=== PATIENT | male | born 1990 | race African-American/Black ===

== ENCOUNTER 2019-08-30 21:58 | Observation (INO) | payer SELFPAY ==
--- NOTE | ~2019-08-30 | CT_ITS ---
EXAMINATION: CT brain wo con INDICATION: Transient alteration of awareness COMPARISON: None TECHNIQUE: Standard unenhanced head CT. The dose-length product (DLP) was 605.33 mGy-cm. The mA was a djusted according to patient size. Iterative reconstruction technique was employed. FINDINGS: There is no intracranial hemorrhage, acute infarction, or abnormal mass lesion. The ventric les are normal. There is no abnormal mass effect or midline shift. The walton-white matter differentiat ion is normal. The basal cisterns are patent. The orbits are normal. The paranasal sinuses, mastoids and calvarium are normal. IMPRESSION: 1. No acute intracranial abnormality. Reviewed, dictated and finalized at location A.
--- NOTE | ~2019-08-30 | XR_ITS ---
EXAMINATION: XR chest 1V portable INDICATION: Transient alteration of awareness TECHNIQUE: Portable AP chest at 2224 hours COMPARISON: None available FINDINGS: There are patchy airspace opacities of the mid and lower lung zones. No pleural effusion or pneumothorax is identified. The cardiomediastinal silhouette is normal. The visualized osseous struc tures are unremarkable. IMPRESSION: 1. Patchy opacities of the mid and lower lung zones, consistent with atelectasis versus pneumonia. Reviewed, dictated and finalized at location A. IMPRESSION: 1. Patchy opacities of the mid and lower lung zones, consistent with atelectasi s versus pneumonia.
--- NOTE | ~2019-08-30 | US_ITS ---
EXAMINATION: US carotid duplex BI DATE: 08/31/2019 15:16 INDICATION: Syncope. TECHNIQUE: Grayscale, color Doppler, and pulsed Doppler images of the cervical carotid arteries were obtained. The degree of vessel stenosis is placed in one of the following categories: normal, <50%, 5 0-69%, >=70% but less than near-occlusion, near-occlusion, or total occlusion. Note that percent sten osis relative to normal distal artery lumen diameter is indirectly measured from velocity measurement s as described by Cameron, et al. Radiology 2003; 229:340-346. COMPARISON: None. FINDINGS: RIGHT: The right common carotid artery (CCA) peak systolic velocity (PSV) is 131 cm/s. The right internal ca rotid artery (ICA) PSV is 72 cm/s. The right ICA end-diastolic velocity (EDV) is 27 cm/s. The right I CA/CCA PSV ratio is 0.5. Grayscale and color Doppler images yield an estimate of 0% diameter reductio n from plaque in the ICA. There is antegrade flow in the right vertebral artery. LEFT: The left CCA PSV is 164 cm/s. The left ICA PSV is 91 cm/s. The left ICA EDV is 11 cm/s. The left ICA/ CCA PSV ratio is 0.6. Grayscale and color Doppler images yield an estimate of 0% diameter reduction f rom plaque in the ICA. There is antegrade flow in the left vertebral artery. IMPRESSION: 1. Normal internal carotid arteries. Reviewed, dictated and finalized at location E.
[2019-08-30 21:53] VITALS: BP 117/70; PULSE 55; RESP 17; TEMP 36.6; O2SAT 100
--- NOTE | 2019-08-30 22:08 | ECG_ITS ---
Measurements Intervals [place] Rate: 51 P: 3 TN: 194 QRS: 70 QRSD: 95 T: 45 QT: 390 QTc: 363 Interpretive Statements SINUS BRADYCARDIA BASELINE WANDER- I, II, AVR, AVL, AVF BORDERLINE ECG Electronically Signed On 08-31-2019 7:07:44 CDT by Randy Stanley D.O.
--- NOTE | 2019-08-30 22:08 | ED.AMS ---
HPI - Altered Mental Status General Chief Complaint: Altered Mental Status Stated Complaint: unresponsive Source: RN notes reviewed History of Present Illness HPI narrative: Patient presents emergency department from home for altered mental status. Patient states he was at work and was walking on the bathroom does not recall anything after this. Patient was found facedown on some pallets. He was unresponsive for approximately 10 to 15 minutes. When EMS initially arrived the patient was only responsive to painful stimuli progressively came more alert on his own and is now ANO x3. Patient does not recall what happened. Denies any complaints at this time. Denies any previous past medical history of drug use. Patient denies any pain at this time denies any recent illness Related Data Home Medications Medication Instructions Recorded Confirmed No Home Medications 08/31/19 08/31/19 Allergies Allergy/AdvReac Type Severity Reaction Status Date / Time No Known Allergies Allergy Verified 08/31/19 02:45 Review of Systems Review of Systems: Narrative: Gen.: Denies fevers or chills Eyes: Denies eye pain or visual change ENT: Denies congestion Respiratory: Denies shortness of breath or cough CV: Denies chest pain or palpitations GI: Denies abdominal pain nausea, emesis or diarrhea Musculoskeletal: Denies back pain or muscle pain Neuro: Denies numbness, tingling, weakness or focal weakness Skin: Denies rash Except as documented, all other systems reviewed and negative [facility] Past Medical History Medical History (Updated 08/31/19 @ 02:46 by Kleber Elmore DO) Patient denies significant medical history Exam Narrative: Exam Narrative: APPEARANCE: No acute distress, nontoxic, resting in bed HEENT: Normocephalic, atraumatic, OMM, TMs clear bilaterally EYES: PERRL, EOMI NECK: Supple, nontender, full range of motion without pain, no meningismus RESPIRATORY: No respiratory distress, clear to auscultation bilaterally with no rhonchi wheezing or rales CARDIOVASCULAR: RRR s murmur ABDOMINAL: Soft, nontender, nondistended MUSCULOSKELETAL: Moves all extremities. No clubbing, cyanosis or edema. NEURO: A and O ?3, following commands, speech normal, cranial nerves II through XII grossly intact,muscle strength 5 out of 5 bilateral upper and lower extremities SKIN:: Warm, dry. Normal Color PSYCHIATRIC: Normal affect/mood Course Course Emergency Course: Following chest x-ray did discuss with the patient he has had no cough or shortness of breath Patient with ABG drawn and printed out ABG does show patient having carbon monoxide level of 10 however this did not result in the chart as it was not ordered as an ABG complex. This matches with patient's finger CO level at bedside machine of 10 patient is a smoker and is felt secondary to smoking Patient remained awake and alert. I did discuss with him his amphetamine seen on drug screen denies any drug use Discussed with Dr. Zhong presentation work-up agrees with admission at this time Discussed with patient and family results of workup and diagnosis. Discussed need for admission. Patient and family understand and agree to current treatment plan Vital Signs Vital signs: Vital Signs Temperature 97.8 F 08/30/19 21:53 Pulse Rate 55 L 08/30/19 21:53 Respiratory Rate 17 08/30/19 21:53 Blood Pressure 117/70 08/30/19 21:53 Pulse Oximetry 100 08/30/19 21:53 Temperature 97.8 F 08/30/19 21:53 Pulse Rate 50 L 08/31/19 02:01 Respiratory Rate 20 08/31/19 02:01 Blood Pressure 114/63 08/31/19 02:01 Pulse Oximetry 100 08/31/19 01:13 MDM - Altered Mental Status MDM Narrative Medical decision making narrative: Patient was at work with episode of unresponsiveness for approximately 10 to 15 minutes per coworkers and when EMS arrived was still minimally responsive to pain became more awake question possible syncope versus seizure episode will admit at this time fo
--- NOTE | 2019-08-30 22:10 | PC.NURSE ---
Patient placed on CO monitor and reads 15, EDP informed.
[2019-08-30 22:26] LABS: Basophils Percent Auto 0.7 % (0.2-1.2); Eosinophils Absolute Auto 0.1 K/mm3 (0-0.3); Hematocrit 42.1 % (42.0-52.0); Hemoglobin 14.5 g/dL (14.0-18.0); Immature Granulocyte Absolute 0.01 K/mm3 (0.00-0.031); Immature Granulocyte Percent A 0.2 % (0-0.5); Lymphocytes Absolute Auto 2.56 K/mm3 (0.9-3.2); Lymphocytes Percent Auto 41.7 % (18.3-44.2); Mean Corpuscular HGB Conc 34.4 g/dl (32-36); Mean Corpuscular Volume 92.9 fl (80-100); Mean Platelet Volume 9.3 fl (7.4-10.4); Monocytes Absolute Auto 0.5 K/mm3 (0.1-0.6); Monocytes Percent Auto 7.3 % (2.6-8.5); Neutrophils Percent Auto 48.1 % (45.5-73.1); Platelet Count Result 221 k/mm3 (150-375); Red Blood Count 4.53 M/mm3 (4.6-6.20); Red Cell Distribution Width 13.3 % (11.5-14.5); White Blood Count 6.1 K/mm3 (4.5-10.0)
[2019-08-30 22:30] VITALS: PULSE 56; RESP 16; O2SAT 99
[2019-08-30 22:35] LABS: INR 0.9; Prothrombin Time 12.2 Seconds (11.1-14.7)
[2019-08-30 22:35] LABS: Alveolar/Arterial O2 Gradient 9.4 mmHg; Base Excess ABG 2.5 mEq/l (+/-2.0); Fractional Inspired Oxygen 21 %; HCO3 ABG 27.2 mEq/l (22.0-26.0); Oxygen Content ABG 18.2 %vol (16.0-22.0); Oxyhemoglobin 86.6 % THb (90.0-100.0); PCO2 ABG 42.3 mmHg (35.0-45.0); PO2 ABG 89.7 mmHg (80.0-100.0); PO2 FiO2 Ratio Arterial Blood 4.27 %; Total Hemoglobin 14.9 g/dL (12.0-18.0); pH ABG 7.426 (7.350-7.450)
[2019-08-30 22:36] LABS: Partial Thromboplastin Time 24.7 SECONDS (22.3-36.8)
[2019-08-30 22:37] LABS: Alanine Aminotransferase 19 U/L (4-50); Albumin Level 4.3 g/dL (3.5-5.1); Alkaline Phosphatase 90 U/L (38-126); Aspartate Amino Transferase 20 U/L (17-59); Bilirubin,Total 0.3 mg/dL (0.2-1.3); Blood Urea Nitrogen 12 mg/dL (9-20); Calcium 9.1 mg/dL (8.4-10.2); Carbon Dioxide 29 mmol/L (22-30); Chloride 104 mmol/L (98-107); Estimated Glomerular Filt Rate > 60; Glucose 96 mg/dL (75-110); Potassium 3.6 mmol/L (3.4-5.0); Sodium 137 mmol/L (137-145)
[2019-08-30 22:37] LABS: Device ROOM AIR; Modified Allen's Test Pass; Site Drawn RIGHT RADIAL
[2019-08-30 22:38] LABS: Ethanol < 10 mg/dL (<10)
[2019-08-30 22:49] LABS: Troponin I < 0.012 ng/mL (0.000-0.034)
[2019-08-30 23:00] VITALS: PULSE 59; RESP 22; O2SAT 96
[2019-08-30 23:01] VITALS: BP 123/76; PULSE 58; RESP 20; O2SAT 99
[2019-08-30 23:15] VITALS: PULSE 65; RESP 19; O2SAT 100
[2019-08-30 23:39] VITALS: PULSE 85; RESP 23
[2019-08-31] VITALS (22 sets, daily range): BP systolic 93–130; BP diastolic 47–84; PULSE 40–67; RESP 16–21; TEMP 36.6–36.9; O2SAT 96–100; BMI 26.9
--- NOTE | 2019-08-31 | ECHO_ITS ---
Patient Info Name: James Duran Age: 29 years : 1990 Gender: Male Ht: 70 in Wt: 188 lbs BSA: 2.07 m2 HR: 50 bpm BP: 129 / 70 mmHg Heart Rhythm: Bradycardia Technical Quality: Excellent Exam Date: 08/31/2019 11:28 AM Exam Location: [facility] Patient Status: Inpatient Admit Date: 08/31/2019 Staff Ordering Physician: Blayne Medrano MD Technical Specialist Cytology: Dawson Grier RDCS Attending Provider: Cindi Zhong DO Exam Type: CA echo doppler color flow Study Info Indications R55 - Syncope and collapse Complete two-dimensional, color flow and Doppler transthoracic echocardiogram is performed. Strain analysis performed. History/Risk Factors Syncope and collapse; bradycardia. Summary 1. Left ventricular chamber dimension is normal. 2. Left ventricular systolic function is normal, estimated at 60-65%. 3. There is mildly increased left ventricular wall thickness. 4. Left ventricular septal wall motion is normal. 5. The left ventricular diastolic function is normal. 6. Global longitudinal strain is normal at -17 %. 7. There is mild mitral valve regurgitation. 8. There is mild tricuspid valve regurgitation. 9. There is mild pulmonic regurgitation. Left Ventricle Left ventricular chamber dimension is normal. Left ventricular systolic function is normal, estimated at 60-65%. There is mildly increased left ventricular wall thickness. Left ventricular septal wall motion is normal. The left ventricular diastolic function is normal. Global longitudinal strain is normal at -17 %. Right Ventricle Right ventricular chamber dimension is normal. Right ventricular systolic function is normal. Left Atria Left atrial chamber dimension is normal. Right Atria Right atrial chamber dimension is normal. Atrial Septum Intact interatrial septum visualized by color flow imaging. Aortic Valve The aortic valve is trileaflet. There is no aortic valve sclerosis. There is no aortic valve stenosis. There is trace aortic valve regurgitation. Pulmonic Valve The pulmonic valve is normal. There is no pulmonic valve stenosis. There is mild pulmonic regurgitation. Mitral Valve The mitral valve has normal leaflets. There is no mitral valve stenosis. There is mild mitral valve regurgitation. Tricuspid Valve The tricuspid valve leaflets are normal. There is no significant tricuspid valve stenosis. There is mild tricuspid valve regurgitation. No pulmonary hypertension, estimated pulmonary arterial systolic pressure is 25 mmHg. Pericardium/Pleural The pericardium appears normal. There is no pericardial effusion. Aorta The aortic root size at the sinus of Valsalva is normal. The prox ascending aorta size is normal. Left Ventricular Outflow Tract Name Value Normal LVOT 2D LVOT Diameter 2.1 cm LVOT Doppler LVOT Peak Gradient 8 mmHg LVOT Mean Gradient 4 mmHg LVOT VTI 30 cm LVOT VTI/AV VTI Ratio 1.0 LVOT Stroke Volume 102
[2019-08-31 00:14] LABS: Add Urine Microscopic? YES; Appearance Urine Clear (Clear); Bilirubin Urine Negative (Negative); Blood Urine Negative (Negative); Color Urine Yellow (Yellow); Glucose Urine UA Negative (Negative); Ketones Urine Negative (Negative); Leukocyte Esterase Ur Negative LEU/UL (Negative); Mucus Urine Moderate /lpf; Nitrate Urine Negative (Negative); Protein Urine Negative (Negative); RBC Urine 0-2 /hpf (0-2); Specific Grav Ur 1.026 (1.001-1.035)
[2019-08-31 00:26] LABS: Amphetamine Screen Urine Positive (Negative); Barbiturate Screen Urine Negative (Negative); Benzodiazepines Screen Urine Negative (Negative); Cannabinoid Screen Urine Negative (Negative); Cocaine Screen Urine Negative (Negative); Methadone Screen Urine Negative (Negative); Opiate Screen Urine Negative (Negative); Phencyclidine Screen Urine Negative (Negative)
[2019-08-31 03:11] LABS: Troponin I 0.013 ng/mL (0.000-0.034)
--- NOTE | 2019-08-31 03:30 | ADMGEN ---
This patient, James Duran, was admitted to [facility] Surg Room 311-01. Patient/family oriented to hospital policies and general routines including ID bracelet, bed and alarms, visiting hours, pain management, procedures, bathroom and other care routines, personal items, smoking policy, room service/diet, and visiting hours. Valuables list has been completed. Information on how to activate the Rapid Response Team has been discussed. Patient/Family are encouraged to report perceived risks to care and to ask questions if they do not understand what they are told or what they should do.
--- NOTE | 2019-08-31 16:02 | PM.SD ---
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 Presently patient is more alert oriented and does not appear to be any distress, patient urine drug tox was positive for amphetamine, to further evaluate patient chemistry CBC, EKG, chest x-ray, carotid ultrasound, cardiac echo were essentially normal, patient is is currently moving around in the room and talking to his family over the phone does not appear to be any distress. [facility] Past Medical History Medical History (Updated 08/31/19 @ 02:46 by Kleber Elmore DO) Patient denies significant medical history Social History Social History (Updated 08/30/19 @ 22:10 by lKeber Elmore DO) Years smoked: 15 Smoking status: Current every day smoker Tobacco type: cigarettes Alcohol intake: current Drinks per week: 4 Substance use: never Spiritual care concerns: No Same Day Admit/Disch: Med Pre-admit Medications Home Medications Medication Instructions Recorded Confirmed Type No Home Medications 08/31/19 08/31/19 History Exam Const: General: comfortable and no acute distress HENMT: General nose exam: Normal nares present Mouth: Yes moist mucous membranes Eyes: General: appearance normal, both eyes and all related structures Sclera: sclerae normal Neck: Neck: supple Resp: Effort & Inspection: normal respiratory effort Auscultation: clear to auscultation bilaterally Cardio: Rate: regular rate Rhythm: regular rhythm GI: Auscultation: normal bowel sounds Skin: General skin exam: normal color Neuro: Speech: normal speech Sensory Exam: normal sensation Extrem: General: normal to inspection Psych: Affect: Anxious affect present DS: Data Data Completed and Pending Labs on day of discharge: Labs from last 24 hours 08/31/19 08/31/19 08/31/19 02:43 00:00 00:00 WBC RBC Hgb Hct MCV MCH MCHC RDW Plt Count MPV Immature Gran % (Auto) Neut % (Auto) Lymph % (Auto) [place] % (Auto) Eos % (Auto) Baso % (Auto) Lymph # (Auto) [place] # (Auto) Eos # (Auto) Baso # (Auto) Abs Immat Gran (auto) Absolute Neuts (auto) Absolute Nucleated RBC Nucleated RBC % PT INR APTT Puncture Site ABG pH ABG pCO2 ABG pO2 ABG PO2/FiO2 Ratio ABG HCO3 ABG O2 Saturation ABG O2 Content ABG Base Excess A-a Gradient Oxyhemoglobin Total Hemoglobin O2 Delivery Device O2 Liters/Min FiO2 Sodium Potassium Chloride Carbon Dioxide BUN Creatinine Estim Creat Clear Calc Estimated GFR Glucose Calcium Total Bilirubin AST ALT Alkaline Phosphatase Troponin I 0.013 Total Protein Albumin Urine Color Yellow Urine Appearance Clear Urine pH 5.0 Ur Specific [place] 1.026 Urine Protein Negative Urine Glucose (UA) Negative Urine Ketones Negative Ur Blood (Man) Negative Urine Nitrate Negative Urine Bilirubin Negative Urine Urobilinogen 4.0 H Leukocyte Esterase Rfl Negative Urine RBC 0-2 Urine WBC 4-6 H Urine Mucus Moderate H Urine Opiates Screen Negative Urine Methadone Screen Negative Ur Barbiturates Screen Negative Ur Phencyclidine Scrn Negative Ur Amphetamine Screen Positive A U Benzodiazepines Scrn Negative Urine Cocaine Screen Negative U Cannabinoids Screen Negative Ethyl Alcohol 08/30/19 08/30/19 08/30/19 22:29 22:20 22:
== END 2019-08-31 18:15 | disposition home or self-care (01) ==
LOC: ANHED 08-31 02:46 → ANH3MEDSUR 08-31 03:40
PROVIDERS: Admitting Provider Internal Medicine; Emergency Provider Emergency Medicine; Visit Provider Family Medicine
DX: R41.82 Altered mental status, unspecified (principal); R55 Syncope and collapse; F17.210 Nicotine dependence, cigarettes, uncomplicated
CPT/HCPCS: 36415; 36600; 70450; 71045; 80053; 80307; 81001; 82805; 84484; 85025; 85610; 85730; 93005; 93306; 93880; 99285; G0378; G0379